=== PATIENT | female | born 1990 | race African-American/Black ===

== ENCOUNTER 2017-09-19 19:28 | Emergency (ER) | payer SELFPAY ==
[~2017-09-19] VITALS: Ht 165.1 cm; Wt 105.0 kg
[2017-09-19 19:30] VITALS: BP 141/92; PULSE 105; RESP 16; TEMP 98.5; O2SAT 100
[2017-09-19] MEDS ORDERED: TETANUS/DIPHTHERIA TOXOID ADULT 0.5 ML VIAL IM ONE (20:15)
[2017-09-19] MEDS ORDERED: SILVER SULFADIAZINE 1% CR 50 GM JAR TOPICAL ONE (20:15)
--- NOTE | 2017-09-19 20:22 | PD ---
HPI Chief Complaint: Burn Time Seen by Provider: 20:11 Travel History International Travel<30 days: No Contact w/Intl Traveler<30days: No Traveled to known affect area: No History of Present Illness HPI 26-year-old female presents to the emergency room for evaluation of burn to her left breast that occurred yesterday. Patient was eating a hot burrito when a piece of the contents fell out of the burrito and onto left breast. States she started to scratch away the burrito and her skin came off with it. She has been applying triple antibiotic ointment. She became concerned because her wound rag had yellow drainage on it. Reports moderate pain. Denies fever, chills, nausea, vomiting. No chronic medical conditions or daily medications. Unknown last tetanus. PFSH Past Medical History Hx Anticoagulant Therapy: No Anemia: Yes (GESTATIONAL) Cardiovascular Problems: No Chemotherapy: No Cerebrovascular Accident: No Diabetes: No Diminished Hearing: No Reproductive: Yes (PRE-ECLAMPSIA) Respiratory: No Immunizations Current: No ?: Not LMP: 09/13/17 : 1 Para: 1 Past Surgical History Section: Yes (2011) Tympanostomy Tube: Yes Other Surgery: Yes (bartholin cyst) Social History Alcohol Use: Yes (OCCASIONAL) Tobacco Use: No Substance Use: No Allergies-Medications (Allergen,Severity, Reaction): Coded Allergies: morphine (Unverified Allergy, Intermediate, hives, 09/19/17) Reported Meds & Prescriptions Reported Meds & Active Scripts Active No Active Prescriptions or Reported Medications Review of Systems Except as stated in HPI: all other systems reviewed are Neg Physical Exam Narrative GENERAL: Well-nourished, well-developed female in no acute distress. Afebrile. Ambulatory. SKIN: Focused skin assessment warm/dry. There is a 2 cm in diameter superficial partial-thickness burn to the left anterior breast. No surrounding erythema. No significant drainage. Blister has been removed. No lymphangitis. HEAD: Normocephalic. EYES: No scleral icterus. No injection or drainage. NECK: Supple, trachea midline. No JVD or lymphadenopathy. CARDIOVASCULAR: Regular rate and rhythm without murmurs, gallops, or rubs. RESPIRATORY: Breath sounds equal bilaterally. No accessory muscle use. PSYCHIATRIC: No delusional thought processes. No hallucinations. Data Data Last Documented VS Vital Signs Date Time Temp Pulse Resp B/P (MAP) Pulse Ox O2 Delivery O2 Flow Rate FiO2 09/19/17 19:30 98.5 105 16 141/92 (108) 100 Room Air Orders Orders Silver Sulfadia 1% Crm (50 Gm) (Silvaden (09/19/17 20:15) Tetanus/Diphtheria Tox Adult (Tetanus/Di (09/19/17 20:15) MDM Medical Decision Making Medical Screen Exam Complete: Yes Emergency Medical Condition: Yes Medical Record Reviewed: Yes Differential Diagnosis Burn, cellulitis, folliculitis, contusion Narrative Course 26-year-old female presents to the emergency room for evaluation of a burn to her left breast that occurred yesterday. Patient still a piece of hot burrito on her breast and when she wiped it away, her skin wiped away too. She is concerned because the rag she has been using appeared to have purulent drainage on it. Physical exam reveals a 2 cm in diameter superficial partial-thickness burn to the left anterior breast. No surrounding erythema. No significant drainage. Blister has been removed. Tetanus was updated. There is no evidence of secondary infection and patient does not need oral antibiotics at this time. Silvadene dressing was applied in the ED and patient was discharged with prescription for Silvadene. Told to follow-up with a primary care physician or return for worsening symptoms. She understands and agrees to plan. Diagnosis Primary Impression: superficial partial-thickness burn of left breast Referrals: Primary Care Physician Additional Instructions: Keep wound clean and dry. Apply Silvadene ointment with a clean dressing twice daily. Follow-up with the primary care physician. Return for the emergency room for worsening symptoms. Med/Other Pt SpecificInfo: Prescription(s) given Scripts No Active Prescriptions or Reported Meds Disposition: 01 DISCHARGE HOME Condition: Stable Liana Slater Sep 19, 2017 20:22
[2017-09-19] MEDS ORDERED: SILV1CRE20 TOPICAL (20:23)
== END 2017-09-19 20:51 | disposition home or self-care (01) ==
LOC: NEPK 19:28
DX: T21.01XA Burn of unspecified degree of chest wall, initial encounter (principal); T31.0 Burns involving less than 10% of body surface; X10.1XXA Contact with hot food, initial encounter; Z88.5 Allergy status to narcotic agent
CPT/HCPCS: 16020; 90471; 90714; 99283; 99284

== ENCOUNTER 2018-03-17 10:41 | Emergency (ER) | payer SELFPAY ==
[~2018-03-17 10:41] MED LIST: ALLE12TA2 PO; MOME17I EACH NARE; SILV1CRE20 TOPICAL
[2018-03-17 11:18] VITALS: BP 131/63; PULSE 104; RESP 16; TEMP 98.5; O2SAT 99
--- NOTE | 2018-03-17 13:10 | PD ---
HPI Chief Complaint: Cold / Flu Symptoms Time Seen by Provider: 11:57 Travel History International Travel<30 days: No Contact w/Intl Traveler<30days: No Traveled to known affect area: No History of Present Illness HPI 27-year-old female presents to the emergency room for evaluation of mildly productive cough, congestion, and body aches for the past day. Patient states she woke up with a scratchy throat yesterday and they suddenly worsened in the middle of the day. She has not been taking anything for symptoms because she does not like to take medication. She denies any sore throat, earache, fever, chills, nausea, vomiting. Last menstrual cycle was 2 weeks ago. PFSH Past Medical History Hx Anticoagulant Therapy: No Anemia: Yes (GESTATIONAL) Cardiovascular Problems: No Chemotherapy: No Cerebrovascular Accident: No Diabetes: No Diminished Hearing: No Reproductive: Yes (PRE-ECLAMPSIA) Respiratory: No Immunizations Current: No : 1 Para: 1 Past Surgical History Section: Yes (2011) Tympanostomy Tube: Yes Other Surgery: Yes (bartholin cyst) Social History Alcohol Use: Yes (OCCASIONAL) Tobacco Use: No Substance Use: No Allergies-Medications (Allergen,Severity, Reaction): Coded Allergies: morphine (Unverified Allergy, Intermediate, hives, 09/19/17) Reported Meds & Prescriptions Reported Meds & Active Scripts Active Review of Systems Except as stated in HPI: all other systems reviewed are Neg Physical Exam Narrative GENERAL: Well-nourished, well-developed female no acute distress. Afebrile. Ambulatory. SKIN: Focused skin assessment warm/dry. HEAD: Normocephalic. EYES: No scleral icterus. No injection or drainage. NECK: Supple, trachea midline. No JVD or lymphadenopathy. ENT: Mucosa pink and moist. No erythema or exudates. No uvular edema. No uvular , palatal, or tonsillar deviation. Airway patent. Nasal turbinates appear normal without nasal blood, purulent drainage or septal hematoma. EARS: Bilateral pinnae and external canals appear within normal limits. Bilateral tympanic membranes without erythema, dullness or perforation. CARDIOVASCULAR: Regular rate and rhythm without murmurs, gallops, or rubs. RESPIRATORY: Breath sounds equal bilaterally. No accessory muscle use. No crackles, rales, wheezes, rhonchi. Data Data Last Documented VS Vital Signs Date Time Temp Pulse Resp B/P (MAP) Pulse Ox O2 Delivery O2 Flow Rate FiO2 03/17/18 11:18 98.5 104 16 131/63 (85) 99 Orders Orders Influenzae A/B Antigen (03/17/18 12:22) Chest, Pa & Lat (03/17/18 ) MDM Medical Decision Making Medical Screen Exam Complete: Yes Emergency Medical Condition: Yes Medical Record Reviewed: Yes Differential Diagnosis Upper respiratory infection, bronchitis, pneumonia, flu Narrative Course 27-year-old female presents to the emergency room for evaluation of cough, congestion, and body aches for the past day. Patient is afebrile well- appearing in the emergency room. Vital signs stable. Physical exam unremarkable. Chest x-ray is negative. Rapid influenza is negative. This is viral URI. Patient told to take [id number] medications and follow-up with a primary care physician or return for worsening symptoms. She understands and agrees to plan. Diagnosis Primary Impression: Upper respiratory infection Qualified Codes: J00 - Acute nasopharyngitis [common cold] Referrals: Primary Care Physician Additional Instructions: Rest and drink plenty of fluids. Take [id number] cough and cold medications for symptoms. Follow-up with a primary care physician. Return to the emergency room for worsening symptoms. Med/Other Pt SpecificInfo: Prescription(s) given Disposition: 01 DISCHARGE HOME Condition: Stable Liana Slater Mar 17, 2018 13:10
--- NOTE | 2018-03-17 13:34 | RADRPT ---
EXAM DATE: 03/17/2018 1:10 PM EDT AGE/SEX: 27 years / Female INDICATIONS: Complains of a cold. CLINICAL DATA: This is the patient's initial encounter. Patient reports that signs and symptoms have been present for 2 days and indicates a pain score of 0/10. MEDICAL/SURGICAL HISTORY: . smokes None. COMPARISON: No prior [facility] exams available for comparison. FINDINGS: PA and lateral views of the chest demonstrate a normal-sized cardiac silhouette. There is no effusion , consolidation, or pneumothorax. The bones and soft tissues demonstrate no acute abnormality. CONCLUSION: No acute cardiopulmonary abnormality is identified. Electronically signed by: Haris Wall MD 03/17/2018 1:32 PM EDT
== END 2018-03-17 14:42 | disposition home or self-care (01) ==
LOC: NEPK 10:41
DX: J00 Acute nasopharyngitis [common cold] (principal)
CPT/HCPCS: 71046; 87804; 99284